=== PATIENT | female | born 1935 | race Caucasian/White ===

== ENCOUNTER 2017-12-02 06:36 | Emergency (ER) | payer OTHER ==
[~2017-12-02] VITALS: Ht 144.8 cm; Wt 54.4 kg
[2017-12-02] MEDS ORDERED: IV NS 0.9% 500 ML BAG IV ONE (07:00)
--- NOTE | 2017-12-02 07:00 | NUR ---
82 YO FEMALE BB SELF. PATIENT IS ALERT AND ORIENTED X 3, C/O GENERALIZED WEAKNESS X 1 DAY. PATIENT AMBULATED TO ER BED WITH STEADY GAIT, PATIENT IS MOVEING ALL EXTREMITY FREELY, NO DISTRESS NOTED. PATIENT SKIN WARM AND DRY, RESP EVEN AND UNLABORED. WILL CONTINUE TO MONITOR
--- NOTE | 2017-12-02 07:24 | NUR ---
20G LEFT AC IV STARTED, BLOOD SAMPLE OBTAINED AND SENT TO LAB. MEDICATED PT ORDERED
[2017-12-02 07:29] LABS: BASOPHILS # (AUTO) 0.1 /CMM (0.0-0.2); BASOPHILS % (AUTO) 0.9 % (0.0-2.0); EOSINOPHILS % (AUTO) 1.9 % (0.0-6.0); HEMATOCRIT 41 % (33-45); HEMOGLOBIN 13.5 g/dL (11.5-14.8); LYMPHOCYTES # (AUTO) 1.5 /CMM (0.8-4.8); MEAN CORPUSCULAR HGB CONC 33 g/dl (31.0-36.0); MEAN CORPUSCULAR VOLUME 95 fL (82-100); MONOCYTES # (AUTO) 0.4 /CMM (0.1-1.30); MONOCYTES % (AUTO) 7.2 % (2.0-12.0); NEUTROPHILS # (AUTO) 3.6 /CMM (1.8-8.9); PLATELET COUNT (AUTO) 213 /CMM (150-450); RDW COEFFICIENT OF VARIATION 14.9 (11.5-15.0); RED BLOOD CELL COUNT(AUTO) 4.28 MIL/uL (4.0-5.2); WHITE BLOOD COUNT (AUTO) 5.6 K/uL (4.3-11.0)
[2017-12-02 07:35] LABS: APPEARANCE,URINE CLEAR (CLEAR); BILIRUBIN,URINE NEGATIVE (NEGATIVE); BLOOD, URINE NEGATIVE Ery/uL (NEGATIVE); COLOR,URINE YELLOW (YELLOW); KETONES,URINE NEGATIVE (NEGATIVE); LEUKOCYTE ESTERASE ,URINE NEGATIVE (NEGATIVE); NITRITE, URINE NEGATIVE (NEGATIVE); PROTEIN,URINE NEGATIVE (NEGATIVE); UGLUCOSE NEGATIVE (NEGATIVE); UROBILINOGEN,URINE 0.2 EU/dL (0.2)
--- NOTE | 2017-12-02 07:37 | NUR ---
CANCEL ACCUCHECK PER DR. VYAS
[2017-12-02 07:47] LABS: CALCIUM, SERUM 8.8 mg/dL (8.5-10.1); CARBON DIOXIDE 28 mmol/L (21-32); CHLORIDE 105 mmol/L (98-107); GLUCOSE 96 mg/dL (74-106); POTASSIUM 3.7 mmol/L (3.5-5.1); SODIUM SERUM 143 mmol/L (136-145); UREA NITROGEN, BLOOD 33 mg/dL (7-18)
[2017-12-02 07:55] LABS: TROPONIN I < 0.017 ng/mL (0.00-0.056)
[2017-12-02 08:38] VITALS: BP 154/82
--- NOTE | 2017-12-02 08:53 | NUR ---
IV removed. Catheter intact and site benign. Pressure and 4x4 applied to site. No bleeding noted. Patient discharged to home in stable condition. Written and verbal after care instructions given. Patient verbalizes understanding of instruction.
== END 2017-12-02 08:52 | disposition home or self-care (01) ==
LOC: ER 06:41
DX: F41.9 Anxiety disorder, unspecified (principal); R53.1 Weakness; F10.10 Alcohol abuse, uncomplicated; I10 Essential (primary) hypertension; Z60.2 Problems related to living alone; Z98.890 Other specified postprocedural states
CPT/HCPCS: 36415; 71045-TC; 80048-TC; 81000-TC; 84484-TC; 85025-TC; A4606; J7040; Z7610

== ENCOUNTER 2017-12-11 23:19 | Emergency (ER) | payer OTHER ==
[~2017-12-11] VITALS: Ht 149.9 cm; Wt 54.4 kg
--- NOTE | 2017-12-11 23:25 | NUR ---
PT BROUGHT IN BY [facility] 88. PT IS A/O X 3, NO SOB, ANXIOUS WITH HIGH BP. RESP EVEN AND NON LABORED. PT ON MONITOR, CONTINUES ON O2 MONITOR. WAITING FOR MD TO [facility]ARTY.
[2017-12-12 00:02] LABS: BASOPHILS % (AUTO) 0.4 % (0.0-2.0); EOSINOPHILS % (AUTO) 2.5 % (0.0-6.0); HEMATOCRIT 43 % (33-45); HEMOGLOBIN 14.5 g/dL (11.5-14.8); LYMPHOCYTES # (AUTO) 1.9 /CMM (0.8-4.8); LYMPHOCYTES % (AUTO) 31.3 % (20.0-44.0); MEAN CORPUSCULAR HGB CONC 34 g/dl (31.0-36.0); MEAN CORPUSCULAR VOLUME 95 fL (82-100); MONOCYTES # (AUTO) 0.5 /CMM (0.1-1.30); MONOCYTES % (AUTO) 8.6 % (2.0-12.0); NEUTROPHILS # (AUTO) 3.4 /CMM (1.8-8.9); NEUTROPHILS % (AUTO) 57.2 % (43.0-81.0); PLATELET COUNT (AUTO) 222 /CMM (150-450); RDW COEFFICIENT OF VARIATION 15.1 (11.5-15.0); RED BLOOD CELL COUNT(AUTO) 4.53 MIL/uL (4.0-5.2)
[2017-12-12 00:14] LABS: CALCIUM, SERUM 8.9 mg/dL (8.5-10.1); CARBON DIOXIDE 24 mmol/L (21-32); CHLORIDE 106 mmol/L (98-107); CREATININE 1.1 mg/dL (0.6-1.3); GLUCOSE 72 mg/dL (74-106); POTASSIUM 3.2 mmol/L (3.5-5.1); SODIUM SERUM 141 mmol/L (136-145); UREA NITROGEN, BLOOD 28 mg/dL (7-18)
[2017-12-12 00:20] LABS: INR 0.97 (0.87-1.13)
[2017-12-12 00:22] LABS: TROPONIN I < 0.017 ng/mL (0.00-0.056)
--- NOTE | 2017-12-12 00:39 | NUR ---
RADIOLOGY AT BEDSIDE FOR CXR
[2017-12-12] MEDS ORDERED: POTASSIUM CHLORIDE 20 MEQ TAB.PRT.SR PO ONE ×2 (01:00→01:15)
--- NOTE | 2017-12-12 01:20 | NUR ---
K DUR 20 MEQ X 2 TABS PO GIVEN.
--- NOTE | 2017-12-12 01:32 | NUR ---
CALLED [facility] FOR PENDING CXR RESULTS. PER LIANE, TO BE READ NEXT.
--- NOTE | 2017-12-12 01:47 | NUR ---
CALLED [facility] SPOKE ROBIN. WAITING FOR MD CALL BACK.
--- NOTE | 2017-12-12 01:50 | NUR ---
DR. HAWTHORNE SPEAKING TO [facility] DR. NAGY.
--- NOTE | 2017-12-12 02:00 | NUR ---
PER ASKEW EPRSILVER Bennett TO SET UP TRANSPORT BACK TO HOME ETA 1 HR.
--- NOTE | 2017-12-12 02:37 | NUR ---
PT APPEARS TO BE RESTING COMFORTABLY WITH NO S/S OF PAIN OR DISTRESS.
--- NOTE | 2017-12-12 03:19 | NUR ---
PT AMBULATED TO THE BATHROOM WITH HER WALKER. PT THEN AMBULATED TO THE GURNEY WITH HER WALKER.
--- NOTE | 2017-12-12 03:21 | NUR ---
Patient discharged to home in stable condition VIA AMBULANCE. Written and verbal after care instructions given. Patient verbalizes understanding of instruction. PT'S VSS. NAD NOTED. RESP EVEN AND UNLABORED.
[2017-12-12 03:29] VITALS: BP 152/91
== END 2017-12-12 03:21 | disposition home or self-care (01) ==
LOC: ER 23:21
DX: R00.2 Palpitations (principal); F41.9 Anxiety disorder, unspecified; I10 Essential (primary) hypertension; R79.1 Abnormal coagulation profile; Z60.2 Problems related to living alone
CPT/HCPCS: 36415; 71045; 80048; 84484; 85025; 85730; 93005; 99285; A4606; Z7610

== ENCOUNTER 2018-02-14 02:02 | Emergency (ER) | payer OTHER ==
[~2018-02-14] VITALS: Ht 157.5 cm; Wt 59.0 kg
--- NOTE | 2018-02-14 02:02 | NUR ---
BIB [facility] FROM HOME; RIGHT FLANK PAIN X 1 DAY. HAD PALPITATIONS EARLIER IN THE DAY. VSS NO ACUTE DISTRESS AT THIS TIME. PT IS ALERT AND ORIENTED X3 ABLE TO MAKE NEEDS KNOWN. BREATHIGN RATE WNL WITH ADEQUATE CHEST RISE/FALL. WILL CONTINUE TO MONITOR FOR ANY CHANGES DURING THE SHIFT.
--- NOTE | 2018-02-14 02:03 | NUR ---
ER MD ANAYA AT BEDSIDE FOR EVAL
--- NOTE | 2018-02-14 02:49 | NUR ---
BLOOD SENT TO LAB WITH FRUIT TRIMMER
[2018-02-14 03:01] LABS: BASOPHILS % (AUTO) 0.7 % (0.0-2.0); EOSINOPHILS % (AUTO) 4.2 % (0.0-6.0); HEMATOCRIT 41 % (33-45); HEMOGLOBIN 13.7 g/dL (11.5-14.8); LYMPHOCYTES # (AUTO) 1.8 /CMM (0.8-4.8); LYMPHOCYTES % (AUTO) 37.8 % (20.0-44.0); MEAN CORPUSCULAR HEMOGLOBIN 32 PG (26.0-33.0); MEAN CORPUSCULAR HGB CONC 33 g/dl (31.0-36.0); MEAN CORPUSCULAR VOLUME 97 fL (82-100); MONOCYTES # (AUTO) 0.4 /CMM (0.1-1.30); MONOCYTES % (AUTO) 8.1 % (2.0-12.0); NEUTROPHILS # (AUTO) 2.3 /CMM (1.8-8.9); NEUTROPHILS % (AUTO) 49.2 % (43.0-81.0); PLATELET COUNT (AUTO) 207 /CMM (150-450); RED BLOOD CELL COUNT(AUTO) 4.23 MIL/uL (4.0-5.2); WHITE BLOOD COUNT (AUTO) 4.8 K/uL (4.3-11.0)
[2018-02-14 03:10] LABS: CALCIUM, SERUM 8.3 mg/dL (8.5-10.1); CARBON DIOXIDE 27 mmol/L (21-32); CHLORIDE 108 mmol/L (98-107); CREATININE 0.8 mg/dL (0.6-1.3); GLUCOSE 89 mg/dL (74-106); POTASSIUM 3.7 mmol/L (3.5-5.1); SODIUM SERUM 143 mmol/L (136-145); UREA NITROGEN, BLOOD 24 mg/dL (7-18)
[2018-02-14 03:18] LABS: TROPONIN I < 0.017 ng/mL (0.00-0.056)
--- NOTE | 2018-02-14 03:36 | NUR ---
CAPTION WRITER AT BEDSIDE
[2018-02-14 03:47] LABS: APPEARANCE,URINE CLEAR (CLEAR); BILIRUBIN,URINE NEGATIVE (NEGATIVE); BLOOD, URINE TRACE-INTA Ery/uL (NEGATIVE); COLOR,URINE OTHER (YELLOW); KETONES,URINE NEGATIVE (NEGATIVE); LEUKOCYTE ESTERASE ,URINE TRACE (NEGATIVE); NITRITE, URINE NEGATIVE (NEGATIVE); PROTEIN,URINE NEGATIVE (NEGATIVE); UGLUCOSE NEGATIVE (NEGATIVE); UROBILINOGEN,URINE 0.2 EU/dL (0.2)
[2018-02-14 04:01] LABS: BACTERIA,URINE Few /HPF (None Seen); RBC,URINE 0-2 /HPF (0-2); SQUAMOUS EPITHELIAL CELL,UR Few /HPF (None Seen)
[2018-02-14] MEDS ORDERED: CEPHALEXIN MONOHYDRATE 500 MG CAPSULE PO ONE ×2 (04:34→05:00)
[2018-02-14 04:46] VITALS: BP 159/90
== END 2018-02-14 04:47 | disposition home or self-care (01) ==
LOC: ER 02:03
DX: R53.1 Weakness (principal); N39.0 Urinary tract infection, site not specified; I10 Essential (primary) hypertension; M19.90 Unspecified osteoarthritis, unspecified site; E87.6 Hypokalemia; Z60.2 Problems related to living alone
CPT/HCPCS: 36415; 71045; 80048; 81001; 83605; 84484; 85025; 87086; 93005; 99285; A4606; 81000-TC; Z7610